=== PATIENT | male | born 1955 | race Caucasian/White ===

== ENCOUNTER → 2016-10-04 | Day surgery (SDC) | payer BC ==
[~2016-10-04] VITALS: Ht 177.8 cm; Wt 87.0 kg
[~2016-10-04] MED LIST: ACETAMINOPHEN 325 MG TAB PO PRN; ASPI81TA28 PO; ATOR-22 PO; ATROPINE SULFATE 0.1 MG/ML 5ML SYR IV PRN; AZEL0.15 NAE; BCTROWC NAE; FLUT50SP14 NAE; HYDR-3419 PO; LPR25 PO; MULT-506 PO; PRLSR20 PO; ROPI1TAB PO; SILD50TA PO; SODIUM CHLORIDE 0.9% 1000ML 1,000 ML IV SCH; SODIUM CHLORIDE 0.9% 1000ML 250 ML IV PRN; TRAM-10 PO; WARF5TAB90 PO; [UNRECOGNIZED DRUG - OTHER] PO
[2016-10-04 08:31] VITALS: Ht 177.8 cm; Wt 87.0 kg
[2016-10-04 08:32] VITALS: BP 122/82; PULSE 64; TEMP 36.4; O2SAT 97
--- NOTE | 2016-10-04 10:00 | History & Physical Bridge Note ---
H&P Re-Evaluation Bridge Note: I have examined the patient, reviewed the History & Physical and in the interval since the performance of the History & Physical I have noted the following changes of clinical significance: No changes noted
[2016-10-04 10:57] LABS: ISTAT ARTERIAL BLOOD GAS HCO3 27 meq/L (19-24); ISTAT ARTERIAL BLOOD GAS PCO2 47 mmHg (35-46); ISTAT ARTERIAL BLOOD GAS PO2 < 32 mmHg (80-95); ISTAT ARTERIAL BLOOD GAS pH 7.36 (7.35-7.45); ISTAT CARBON DIOXIDE 28 mEq/l (24-31)
[2016-10-04 10:57] LABS: ISTAT ARTERIAL BLOOD GAS HCO3 25 meq/L (19-24); ISTAT ARTERIAL BLOOD GAS PCO2 43 mmHg (35-46); ISTAT ARTERIAL BLOOD GAS PO2 34 mmHg (80-95); ISTAT ARTERIAL BLOOD GAS pH 7.38 (7.35-7.45); ISTAT CARBON DIOXIDE 27 mEq/l (24-31)
--- NOTE | 2016-10-04 11:09 | [facility] Post Operative Brief Note ---
Preliminary Procedure Note Procedure Date Oct 04, 2016. Pre-Procedure Diagnosis Positive Stress Test, Valvular Disease, Cardiothoracic Symptom AUC Score 7 Post-Procedure Diagnosis Mild CAD Procedure(s) Performed Coronary Angiography, Left Heart Cath, Right Heart Cath, LV Angiography Transportation Associate Dr. Claude Escobar Color Corrector(s) Sole Mims Estimated Blood Loss < 15 CC Medication(s) Lidocaine 1% (local infiltration) Preliminary Findings Right dominant coronary anatomy Minimal coronary atherosclerosis with smooth 20% LAD, PDA Normal LV function EF 65% Mild mitral insufficiency Right heart pressures mildly elevated, mean PA 26 mmhg PCWP 23 , 15.4 mean mitral valve gradient, MV Area 1.5cm2 Recommendations Medical therapy and/or Counseling Specimens None Anesthesia None Procedural Complication(s) None Disposition Studio Manager Holding/Recovery
--- NOTE | 2016-10-04 11:12 | Discharge Instructions ---
Discharge Instructions Procedure Procedure Date: Oct 04, 2016. Reason for Visit: Right & Left, Abnormal Stress Test Dr Shawn Miller. Discharge Discharge Date: Oct 04, 2016. Discharge Diagnosis: Minimal coronary atherosclerosis, Moderate mitral valve stenosis Last Recorded Wt (Kilograms): 87 Anesthesia Post Anesthesia Instructions: If you have had General Anesthesia or IV Sedation: * Do not drive today. * Resume driving when surgeon permits. * Do not make important decisions or sign legal documents today. * Call surgeon for: 1. Temperature elevations greater than 101 degrees F. 2. Uncontrollable pain. 3. Excessive bleeding. 4. Persistent nausea and vomiting. 5. Medication intolerance (nausea, vomiting or rash). * For nausea and vomiting use only clear liquids such as: tea, soda, bouillon until nausea subsides, then gradually increase diet as tolerated. * If you have any concerns or questions, call your surgeon's office. If physician is unavailable and it is an emergency, call 911 or go to the nearest emergency room. Instructions Activity Recommendations: limitations as noted below Return to School/Work: with the following limitations Recommended Home Diet: resume previous diet Allergies: Coded Allergies: Dust (Verified Allergy, Intermediate, SINUS CONGESTION, 02/10/13) Provider Instructions ACTIVITY RECOMMENDATIONS: It is common to feel weak and fatigue for a few days. * Do not drive or operate any motorized equipment for the next three days. * Limit stair usage (2 or 3 trips a day only) for the next three days. * Do not lift anything heavier than 10 pounds for the next three days. * Do not engage in vigorous exercise or any sports for the next five days. * You may shower the day after your procedure, but do not immerse the area for three days. Cleanse the site gently with soap and water. SPECIAL CARE INSTRUCTIONS: * You may replace the pressure dressing or band-aid the morning after the procedure. * After your procedure, it is normal to have a small bruise or small lump at the site. Examine your site daily for any change in the bruise or lump, redness, swelling, drainage or numbness. Notify your doctor if any change. BLEEDING: * If there is a small amount of bleeding at the site, lie down and apply firm pressure with a clean cloth for ten minutes. When the bleeding stops, lie quietly keeping the procedure limb straight for six hours. Notify your doctor as soon as possible. * If the bleeding does not stop after ten minutes or if there is a large amount of bleeding or spurting, call 911 immediately. Continue to lie down and hold firm pressure until help arrives. SKIN IRRITATION: * You may experience some redness and/or swelling in the area where radiation was administered. If any skin irritation occurs, please contact your family physician. FOLLOW UP VISIT: Keep any scheduled doctor appointments. Follow Up Follow-up with: Dr Allen as scheduled Christopher Horton Recommendations: Call your doctor if: * Temperature above 101 degrees * Pain not relieved by pain medicine ordered * There is increased drainage or redness from any incision * You have any unanswered questions or concerns. Your Doctors Instructions noted above were prepared by provider Claude Escobar. Patient Signature Section: Patient Instructions Signature Page James Reid Patient (or Guardian) Signature/Date: I have read and understand the instructions given to me by my caregivers. Caregiver/RN/Doctor Signature/Date: The above-named patient and/or guardian has received patient instructions on this date. + Original Patient Signature Page (only) stays with chart. Please make copy for patient.
[2016-10-04 14:14] LABS: ISTAT ARTERIAL BLOOD GAS HCO3 22 meq/L (19-24); ISTAT ARTERIAL BLOOD GAS PCO2 36 mmHg (35-46); ISTAT ARTERIAL BLOOD GAS PO2 82 mmHg (80-95); ISTAT CARBON DIOXIDE 24 mEq/l (24-31)
[2016-10-04 14:30] VITALS: BP 122/76; PULSE 64; O2SAT 95
--- NOTE | 2016-10-05 12:02 | CARDIAC CATH REPORT ---
REFERRING PHYSICIAN: Dr. Saul Allen. INDICATIONS: Chest pain and history of prior mitral valve repair. PROCEDURE: Right and left heart catheterization, coronary and LV angiography. 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 Echocardiography demonstrates chronic moderate mitral stenosis, stress nuclear imaging suggested apical ischemia. He was referred for diagnostic cardiac catheterization. ACCESS: Right femoral artery, right femoral vein. CATHETERS: A 6-Kitt[place] venous sheath, 6-Kittitian [place] catheter, 5-Kittitian arterial sheath, 5-Kittitian straight pigtail catheter, 5-Kittitian JL4, 5-Kittitian 3DRC. CONTRAST: Nonionic x129 mL. IV FLUIDS: Normal saline x127 mL. COMPLICATIONS: None. MEDICATIONS: None. SEDATION: None. RADIATION EXPOSURE: 7.5 minutes of fluoroscopy time, 1151 milligrays, DAP score of 8027. RESULTS: CORONARY ANGIOGRAPHY: Anatomy is right dominant: LEFT MAIN: Left main is a moderately large caliber vessel and trifurcates to give rise to left anterior descending, a trivial ramus intermedius and left circumflex. There is no disease in the left main. LEFT ANTERIOR DESCENDING: Left anterior descending is type 3 in distribution and gives rise to a high diagonal branch which gives a moderate caliber and then courses to give rise to a second diagonal branch in its mid portion before reaching down to and beyond the apex. Within the left anterior descending, there is a smooth tapering in its proximal third, narrowing the vessel by 20%. The distal vessel is of good caliber and without obstruction. RAMUS INTERMEDIUS: This is a trivial vessel and is free of disease. LEFT CIRCUMFLEX: Left circumflex is large but nondominant giving rise to a large obtuse marginal and a single posterolateral branch. There is no disease in the left circumflex. RIGHT CORONARY ARTERY: The right coronary artery is dominant in distribution, moderate in caliber and gives rise to a right ventricular branch in its mid portion at the AV groove a long posterior descending artery reaching to the apex and along the AV groove to additional posterior ventricular branches. Within the right coronary artery, there are mild luminal irregularities in its mid portion, but no obstructive disease. LEFT VENTRICULAR ANGIOGRAPHY: The left ventricle was normal to hyperdynamic, EF greater than 65%. There is mild mitral insufficiency. HEMODYNAMICS: Right heart pressures revealed a mean right atrial pressure of 4 with a V wave of 6. RV pressure was 37/1 with an RVEDP of 9. PA pressure was 37/15 with a mean of 26. Pulmonary cap wedge pressure mean was 20 with a V wave of 30. Initial left heart pressures revealed an aortic root pressure of 122/68 with a mean of 92. LV pressure was 129/1 with an LVEDP of 17, simultaneous LVEDP revealed an LVEDP of 17 with a pulmonary capillary wedge pressure mean of 23 and the V wave of 32. There was a mean 15.4 mm mitral valve gradient calculated to a mitral valve area of 1.5 cm per square consistent with moderate aortic stenosis. Cardiac output by thermodilution was 5.6 liters per minute. PA saturation was 63%, RA saturation was 57% and femoral artery saturation was 94%. There is no transaortic valve gradient on pullback. FINAL IMPRESSIONS: 1. Right dominant coronary anatomy. 2. Mild luminal irregularities without obstructive coronary disease. 3. Minimal elevation in right heart pressures. 4. Moderate mitral stenosis and measured aortic valve area of 1.5 cm2. 5. Normal hyperdynamic left ventricular function with mild mitral insufficiency.
== END | disposition home or self-care (01) ==
LOC: C.CATH 08:17
PROVIDERS: ATTEND Internal Medicine Cardiovascular Disease
DX: I34.0 Nonrheumatic mitral (valve) insufficiency (principal); I34.2 Nonrheumatic mitral (valve) stenosis; Z79.82 Long term (current) use of aspirin; Z79.899 Other long term (current) drug therapy; Z82.49 Family history of ischemic heart disease and other diseases of the circulatory system